=== PATIENT | female | born 1975 | race Two or more races ===

== ENCOUNTER 2023-01-28 15:47 | Outpatient (CLI) | payer OTHER | END 2023-01-28 15:54 | disposition home or self-care (01) | LOC: RAD 15:47 | PROVIDERS: ATTEND General Practice | DX: M79.631 Pain in right forearm (principal); M85.5 Aneurysmal bone cyst; S69.91XA Unspecified injury of right wrist, hand and finger(s), initial encounter; S59.911A Unspecified injury of right forearm, initial encounter ==

== ENCOUNTER 2023-02-08 08:56 | Outpatient (CLI) | payer OTHER | END 2023-02-08 09:06 | disposition home or self-care (01) | LOC: RAD 08:56 | PROVIDERS: ATTEND Orthopaedic Surgery | DX: S52.124A Nondisplaced fracture of head of right radius, initial encounter for closed fracture (principal); S52.514A Nondisplaced fracture of right radial styloid process, initial encounter for closed fracture ==

== ENCOUNTER 2023-05-13 10:43 | Emergency (ER) | payer OTHER ==
[~2023-05-13] VITALS: Ht 165.1 cm; Wt 54.4 kg
== END 2023-05-13 14:40 | disposition designated cancer center or children's hospital (05) ==
LOC: ER 10:43
PROVIDERS: General Practice
DX: S01.502A Unspecified open wound of oral cavity, initial encounter (principal); S09.93XA Unspecified injury of face, initial encounter; W19.XXXA Unspecified fall, initial encounter; Y93.89 Activity, other specified; Y92.89 Other specified places as the place of occurrence of the external cause; Y99.8 Other external cause status; I60.9 Nontraumatic subarachnoid hemorrhage, unspecified; Z20.822 Contact with and (suspected) exposure to COVID-19